=== PATIENT | female | born 1955 | race Caucasian/White ===

== ENCOUNTER 2021-01-14 07:19 | Emergency (ER) | payer MEDICARE, BC ==
[~2021-01-14] VITALS: Ht 162.6 cm; Wt 113.6 kg
--- NOTE | 2021-01-14 11:20 | NUR ---
Vascular at bedside
[2021-01-14 12:26] VITALS: BP 151/86
== END 2021-01-14 12:28 | disposition home or self-care (01) ==
LOC: ER 07:19
DX: S86.911A Strain of unspecified muscle(s) and tendon(s) at lower leg level, right leg, initial encounter (principal); Z86.711 Personal history of pulmonary embolism; Z86.718 Personal history of other venous thrombosis and embolism; Z85.9 Personal history of malignant neoplasm, unspecified; X58.XXXA Exposure to other specified factors, initial encounter; Y93.89 Activity, other specified; Y92.89 Other specified places as the place of occurrence of the external cause; Y99.8 Other external cause status
CPT/HCPCS: 93971; 99284

== ENCOUNTER 2023-07-24 07:58 | Day surgery (SDC) | payer MEDICARE, BC ==
[2023-07-23 11:47] LABS: BASOPHILS % (AUTO) 0.5 % (0-1); EOSINOPHILS # (AUTO) 0.2 X10'3 (0-0.9); EOSINOPHILS % (AUTO) 1.8 % (0-6); LYMPHOCYTES # (AUTO) 1.5 X10'3 (1.1-4.8); LYMPHOCYTES % (AUTO) 16.9 % (21-51); MEAN CORPUSCULAR HEMOGLOBIN 31.7 PG (27.0-31.0); MEAN CORPUSCULAR HGB CONC 33.8 g/dL (33.0-36.5); MEAN CORPUSCULAR VOLUME 93.9 FL (78-98); MEAN PLATELET VOLUME 8.1 FL (7.4-10.4); MONOCYTES # (AUTO) 0.6 X10'3 (0-0.9); MONOCYTES % (AUTO) 7.3 % (2-12); NEUTROPHILS # (AUTO) 6.5 X10'3 (1.8-7.7); NEUTROPHILS % (AUTO) 73.5 % (42-75); PRE OP HEMATOCRIT 43.8 % (35.0-45.0); PRE OP HEMOGLOBIN 14.8 g/dL (12.0-16.0); PRE OP PLATELET COUNT 227 X10'3 (140-440); PRE OP WHITE BLOOD COUNT 8.9 10'3 (4.8-10.8); RED BLOOD COUNT 4.66 X10'6 (4.20-5.60); RED CELL DISTRIBUTION WIDTH 14.1 % (11.5-14.5)
[2023-07-23 12:14] LABS: ALBUMIN 3.6 G/DL (3.4-5.0); ALBUMIN/GLOBULIN RATIO 0.9 (1.1-1.5); ALKALINE PHOSPHATASE 81 IU/L (46-116); BLOOD UREA NITROGEN 14 MG/DL (7-18); BUN/CREATININE RATIO 16.3 (10.0-20.0); CALCIUM 9.1 MG/DL (8.5-10.1); CHLORIDE 107 MMOL/L (99-107); CREATININE 0.86 MG/DL (0.40-0.90); PRE OP ALT 35 U/L (30-65); PRE OP ANION GAP 7 (8-16); PRE OP AST 19 U/L (10-37); PRE OP BILIRUB, TOTAL 0.4 MG/DL (0.0-1.0); PRE OP GLUCOSE 81 MG/DL (70-104); PRE OP POTASSIUM 3.9 MMOL/L (3.4-5.1); PRE OP SODIUM 145 MMOL/L (135-145); TOTAL CARBON DIOXIDE 30.7 MMOL/L (24-32); TOTAL PROTEIN 7.4 G/DL (6.4-8.2); eGFR 65 ML/MIN
[~2023-07-24] VITALS: Ht 162.6 cm; Wt 95.8 kg
[2023-07-24] VITALS (14 sets, daily range): BP systolic 120–147; BP diastolic 60–94; PULSE 58–82; RESP 10–20; TEMP 98.3; O2SAT 92–98
[~2023-07-24 07:58] MED LIST: ACET-1025 PO; D3; DICL75TA28 PO; GABA; LEVO100T9 PO; LINA72CA PO; MAGNESIUM; MULTI VIT; ONDA4TAB12 PO; PANT40TA54 PO; SERT-434 PO; VALA100031 PO; ZINC
[2023-07-24] MEDS ORDERED: meperidine/PF 25mg/ml syringe IV PRN ×3 (08:40)
[2023-07-24] MEDS ORDERED: morphine 4 MG/ML inj SYRINge IV PRN (08:40)
[2023-07-24] MEDS ORDERED: ringers solution, lacted 1,000 ML IV SCH (08:40)
[2023-07-24] MEDS ORDERED: morphine 2 MG/ML inj. syringe IV PRN (08:40)
[2023-07-24] MEDS ORDERED: proCHLORperazine 10 MG/2 ml inj IV PRN (08:40)
[2023-07-24] MEDS ORDERED: labetalol 20mg/4ml (5mg/ml) syringe IV PRN (08:40)
[2023-07-24] MEDS ORDERED: enalaprilat dihydrate 2.5mg/2ml vial IV PRN (08:40)
[2023-07-24] MEDS: famotidine 20mg tablet PO ONE (09:23)
[2023-07-24] MEDS: INDOCYANINE GREEN 25 MG/10 ML VIAL IV ONE (09:23)
[2023-07-24] MEDS: ringers solution, lacted 1,000 ML IV SCH (09:24)
[2023-07-24] MEDS: cefazolin 2gm/D5W 100mL 100 ML IV ONE (09:24)
[2023-07-24] MEDS ORDERED: LIDOcaine 1% 30ml preserv. free vial ONE (09:26)
[2023-07-24] MEDS ORDERED: BUPIVAcaine/PF 2.5mg/ml (0.25%) 10ml vial ONE (09:26)
[2023-07-24] MEDS ORDERED: sevoflurane 250ml liquid IH ONE (10:46)
[2023-07-24] MEDS ORDERED: fentaNYL/PF 50MCG/1 ML 2ML syringe ONE (10:56)
[2023-07-24] MEDS ORDERED: midazolam 1 mg/ML 2ml injection ONE (10:56)
[2023-07-24] MEDS: BUPIVAcaine/PF 2.5mg/ml (0.25%) 10ml vial IJ ONE (11:39)
[2023-07-24] MEDS ORDERED: propofol inj 20 ML IV ONE (11:49)
[2023-07-24] MEDS ORDERED: acetaminophen 1,000mg/100ml IV 100 ML IV ONE (11:49)
[2023-07-24] MEDS ORDERED: rocuronium 10mg/ml inj IV ONE (11:50)
[2023-07-24] MEDS ORDERED: oxyCODONE/APAP 5-325mg tablet PO PRN (12:25)
[2023-07-24] MEDS: ondansetron/PF 4mg/2ml inj IV PRN (12:53)
== END 2023-07-24 14:17 | disposition home or self-care (01) ==
LOC: PAS 07:58
PROVIDERS: ATTEND Surgery
DX: K80.10 Calculus of gallbladder with chronic cholecystitis without obstruction (principal); K42.0 Umbilical hernia with obstruction, without gangrene; E66.01 Morbid (severe) obesity due to excess calories; Z68.36 Body mass index [BMI] 36.0-36.9, adult; G47.30 Sleep apnea, unspecified; F32.A Depression, unspecified; K21.9 Gastro-esophageal reflux disease without esophagitis; Z98.890 Other specified postprocedural states; Z88.2 Allergy status to sulfonamides; Z88.8 Allergy status to other drugs, medicaments and biological substances; Z91.040 Latex allergy status; Z79.899 Other long term (current) drug therapy
CPT/HCPCS: 36415; 47563; 49592; 80053; 82948; 85025; 93005; J0131; J0690; J1100; J2250; J2405; J2704; J2710; J3010; J3490; J7120; Z7506; Z7508; Z7512; A4215; A4618